=== PATIENT | female | born 1945 | race Caucasian/White ===

== ENCOUNTER → 2016-10-06 | Outpatient (REF) | payer OTHER ==
[2016-10-06 18:44] LABS: INR 1.06
== END ==
LOC: M LAB REF 16:49
PROVIDERS: ATTEND Internal Medicine Medical Oncology
DX: C34.12 Malignant neoplasm of upper lobe, left bronchus or lung (principal)

== ENCOUNTER → 2016-10-07 | Outpatient (REF) | payer OTHER | END | disposition home or self-care (01) | LOC: M LAB REF 08:12 | PROVIDERS: ATTEND Internal Medicine Medical Oncology | DX: C34.90 Malignant neoplasm of unspecified part of unspecified bronchus or lung (principal) ==

== ENCOUNTER → 2016-11-09 | Outpatient (REF) | payer OTHER ==
[~2016-11-09] MED LIST: NO HOME MEDICATIONS
== END ==
LOC: M LAB REF 16:45
PROVIDERS: ATTEND Internal Medicine Medical Oncology
DX: C34.90 Malignant neoplasm of unspecified part of unspecified bronchus or lung (principal); D64.81 Anemia due to antineoplastic chemotherapy

== ENCOUNTER 2016-11-10 08:41 | Outpatient (CLI) | payer OTHER ==
[~2016-11-10] VITALS: Ht 165.1 cm; Wt 72.2 kg
[2016-11-10] MEDS ORDERED: ACETAMINOPHEN TAB 650MG DOSE (2X325MG) PO ONE (09:00)
[2016-11-10] MEDS ORDERED: diphenhydrAMINE 50 MG CAP PO ONE (09:00)
[2016-11-10] MEDS ORDERED: FUROSEMIDE 20 MG/2 ML VIAL (J1940) IV ONE (12:00)
[2016-11-10] MEDS ORDERED: NO HOME MEDICATIONS (14:01)
== END 2016-11-10 14:00 | disposition home or self-care (01) ==
LOC: M INFU 08:41
PROVIDERS: ATTEND Internal Medicine Medical Oncology
DX: D64.81 Anemia due to antineoplastic chemotherapy (principal); C34.90 Malignant neoplasm of unspecified part of unspecified bronchus or lung
CPT/HCPCS: 36430; J1940; P9016

== ENCOUNTER → 2016-11-25 | Outpatient (CLI) | payer OTHER ==
--- NOTE | 2016-11-29 13:04 | RADONC ---
RADIATION ONCOLOGY NOTE DATE: 11/25/2016 CHART NUMBER: [id number]. 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 ECOG PERFORMANCE STATUS: 2. CONSULTATION NOTE: Ms. Capone is a very pleasant, 70-year-old white female with the diagnosis of what appears to be at least locally advanced, if not metastatic poorly differentiated squamous cell carcinoma of her left lung who is presently receiving systemic therapy and is presenting to us today for discussion of possible external beam radiation therapy as a therapeutic option. HISTORY OF PRESENT ILLNESS: The patient was in her usual state of health until approximately 6 months or so ago when she began developing increasing shortness of breath. By late August, she also developed a cough with thick sputum. She noted 6-month history of blood streaks in her sputum. In July 2016, she presented at [facility] with shortness of breath. A CT scan of the chest was done on 08/23/2016 and showed a large cavitary mass in the left upper lobe with air fluid level. The cavitary mass was 9.3 cm x 7.8 cm. There was a spiculated nodule measuring 1.8 cm x 1.6 cm within the medial aspect of the superior segment of the left upper lobe as well. There was another pleural based nodule present in the superior segment of the right lower lobe. On 09/09/2016, the patient underwent CT-guided biopsy of her left upper lobe mass. Pathology revealed a poorly differentiated squamous cell carcinoma. The patient was seen in medical oncology by Dr. Hay and has initiated systemic therapy in that office. She is being treated with carboplatin and gemcitabine. She has thus far had three cycles of chemotherapy. The patient had significant shortness of breath and has difficulty just walking a matter of a few dozen feet. She is not presently on nasal oxygen. The patient is now presenting to see if there is anything we could offer her. Again, in addition, a PET scan was done on 09/22/2016 and again confirmed hypermetabolic uptake in a huge both ears to left upper lobe lung mass as well as in the left hilar region. There was hypermetabolic uptake in the right hilar region as well as a separate right lung mass posterior to the right hilum. There was also increased uptake in the left lower lobe suggestive of lymphangitic malignancy. PAST MEDICAL HISTORY: The patient's past medical history is largely noncontributory. She has been in generally good health. She did have COPD. ALLERGIES: The patient has no known drug allergies. SOCIAL HISTORY: The patient had smoked one pack of cigarettes per day for 47 years. She quit tobacco in 2011 but smokes E-cigarettes now. She does not abuse alcohol. FAMILY HISTORY: The patient's family history is positive for a father with lung cancer. She had a sister with breast cancer. REVIEW OF SYSTEMS: The patient's review of systems is positive for shortness of breath. She has some anorexia and weight loss. She reports occasional dizziness. She also has occasional headaches. She reports chills since chemotherapy. She does complain of shortness of breath as well as weakness in her arms and legs and decreased energy. She denies nausea, vomiting, fevers, chest pain, urinary or bowel difficulties, bone pain or neurological problems. PHYSICAL EXAMINATION: The patient is a well-developed, well-nourished, 70-year-old female, in no acute distress. HEENT exam is normocephalic, atraumatic. Extraocular movements are intact. There is no palpable cervical, supraclavicular, infraclavicular, axillary, or inguinal lymphadenopathy present. Lungs reveal some bilateral rhonchi present. There appears to be decreased breath sounds on the left. Heart has a regular rate and rhythm. Abdomen is benign with no hepatosplenomegaly, masses, or tenderness. Skeletal examination reveals no tenderness to pressure or percussion of the bony skeleton. Extremities reveal no clubbing, cyanosis, or edema. Neurologic exam is grossly intact, as is the remainder of the physical examination. ASSESSMENT: Unfortunately at this time, the patient is quite short of breath walking just from our waiting room to the exam room, which is a few feet. I have personally reviewed the patient's PET scan with the family and the patient present. Although her pulmonary function show an FEV value of 1.35, the amount of lung in any irradiated field to this point would be quite prohibitive. Clearly the vast majority of the left lung would be destroyed but so would a significant portion of the right lung in order to include the hilar region and the separate nodule. The likelihood of cure of this patient is so small that such aggressive therapy does not appear to be warranted at this point. I have set up the patient to see me again in followup in six months' time and I have let her know that I am available to her at anytime should her condition change. I have also let her know we would be more than glad to see her if Dr. Hay thinks there is something we may be able to address. Once again, the role of radiation in this patient would be largely palliative. At this time, there is nothing significant to palliate. I explained to the patient that we might be quite beneficial to her should brain or bone metastasis develop in the future. We would also be willing to readdress lung radiation if the love could somehow be limited in order to avoid some future difficulty, which may develop. Once again, in summary, I have set her up for routine followup in our office so that she will remain in our patient system. She is continuing her close followup and management by her medical oncologist, Dr. Hay in whom I have great confidence. Thank you for allowing us to participate in the care of this very pleasant woman. Please feel free to contact me if I could be of any further assistance. cc: Vashti Hay MD
== END ==
LOC: M ONCR 13:11
PROVIDERS: ATTEND Radiology Radiation Oncology
DX: C34.92 Malignant neoplasm of unspecified part of left bronchus or lung (principal)

== ENCOUNTER → 2016-12-06 | Outpatient (CLI) | payer OTHER, SELFPAY ==
[~2016-12-06] MED LIST changes: +GASTROGRAFIN SOLUTION 30ML (Q9963) As Ordered ONE; +ISOVUE-370 76% 100ML VIAL (Q9967) As Ordered ONE
--- NOTE | 2016-12-07 09:59 | REP ---
Clinical: Primary lung cancer. Technique: Axial contrast enhanced images from the lung bases to the pubic symphysis using oral and 100 ml Isovue 370 intravenous contrast material with precontrast and delayed images of the abdomen as well as coronal and sagittal re-formations. Findings: Liver, spleen, pancreas, gallbladder, bilateral adrenal glands and kidneys are normal. The enteric system is without obstruction or acute inflammatory process. Small hiatal hernia identified at the gastroesophageal junction. Scattered sigmoid diverticula noted without acute diverticulitis. Normal terminal ileum and appendix identified in the right lower quadrant. Pelvis demonstrates normal bladder and age-appropriate uterus/adnexa. No pelvic fluid/ascites. No mass lesion identified. No retroperitoneal or intra-abdominal adenopathy. No free air. Atherosclerotic changes to the aorta and branch vessels noted without aneurysm or dissection. Musculoskeletal structures demonstrate degenerative change without focal osseous abnormality. Lung bases demonstrate chronic emphysematous changes. Impression: Small hiatal hernia. Sigmoid diverticula without acute diverticulitis. No further acute intra-abdominal or pelvic pathology appreciated. Signed by David Krishnamurthy MD 12/07/2016 09:08 A
--- NOTE | 2016-12-07 09:59 | REP ---
Clinical: Primary lung cancer for follow up. Comparison: 08/23/2016. Technique: Axial contrast enhanced images from the thoracic inlet to the upper abdomen using 100 ml Isovue 370 intravenous contrast material with coronal and sagittal re-formations. Findings: A largely complex cavitating lesion extending from the left hilum superiorly and peripherally into the left upper lobe is again identified and while it is difficult to quantify due to its irregular shape and multifaceted components, the lesion appears overall improved and decreased in volume when compared to prior examination. The largest predominantly soft tissue component which is inseparable from the left hilum measures roughly 6.7 cm maximal diameter with smaller intracavitary soft tissue components measuring up to roughly 4.5 cm maximal diameter. Few scattered bilateral soft tissue nodules are again identified and similar to prior examination. Specifically, within the periphery of the right lower lobe (image 47) is an 8.5 mm nodule which is unchanged and within the right perihilar region (image 44) measures roughly 1.7 cm maximal diameter and unchanged. Other smaller lesions and areas of peripheral subpleural soft tissue in the left upper lung zone are now identified and which may have been obscured by larger areas of consolidation and mass on the previous examination. No focal areas of hilar or mediastinal adenopathy are identified. Heart and pericardium appear relatively normal. The thoracic aorta demonstrates atherosclerotic changes without aneurysm or dissection. Lung love demonstrate underlying chronic COPD/emphysematous changes. Musculoskeletal structures demonstrate age-related changes without focal osseous abnormality. Impression: Largely complex cavitary mass involving the left hilum and extending into the left upper lobe appears to be relatively improved and less voluminous when compared to prior examination. Small scattered nodular lesions and soft tissue appears similar to prior examination. Signed by David Krishnamurthy MD 12/07/2016 09:03 A
== END ==
LOC: M RAD 11:41
PROVIDERS: ATTEND Internal Medicine Medical Oncology
DX: C34.90 Malignant neoplasm of unspecified part of unspecified bronchus or lung (principal)
CPT/HCPCS: 71260; 74178; Q9963; Q9967

== ENCOUNTER 2017-01-05 10:02 | Outpatient (CLI) | payer OTHER ==
[~2017-01-05 10:02] MED LIST changes: +ACETAMINOPHEN TAB 650MG DOSE (2X325MG) PO SCH; -GASTROGRAFIN SOLUTION 30ML (Q9963) As Ordered ONE; -ISOVUE-370 76% 100ML VIAL (Q9967) As Ordered ONE; +diphenhydrAMINE 25 MG CAP PO SCH
[2017-01-05] MEDS ORDERED: FUROSEMIDE 20 MG/2 ML VIAL (J1940) IV ONE ×2 (11:00→12:00)
== END 2017-01-05 16:40 | disposition home or self-care (01) ==
LOC: M INFU 10:02
PROVIDERS: ATTEND Internal Medicine Medical Oncology
DX: C34.90 Malignant neoplasm of unspecified part of unspecified bronchus or lung (principal); D64.9 Anemia, unspecified
CPT/HCPCS: 36430; 86850; 86870; 86900; 86901; 86920; J1940; P9016

== ENCOUNTER → 2017-02-23 | Outpatient (REF) | payer OTHER ==
[~2017-02-23] MED LIST changes: -ACETAMINOPHEN TAB 650MG DOSE (2X325MG) PO SCH; -diphenhydrAMINE 25 MG CAP PO SCH
== END ==
LOC: M LAB REF 12:41
PROVIDERS: ATTEND Internal Medicine Medical Oncology
DX: D64.9 Anemia, unspecified (principal)

== ENCOUNTER 2017-02-24 09:31 | Outpatient (CLI) | payer OTHER ==
[2017-02-24 10:00] VITALS: BP 106/55
[2017-02-24] MEDS ORDERED: diphenhydrAMINE 50 MG CAP PO ONE (10:15)
[2017-02-24] MEDS ORDERED: diphenhydrAMINE 25 MG CAP PO ONE (10:15)
[2017-02-24] MEDS ORDERED: ACETAMINOPHEN TAB 650MG DOSE (2X325MG) PO ONE (10:15)
[2017-02-24] MEDS: FUROSEMIDE 20 MG/2 ML VIAL (J1940) IV SCH ×2 (12:26→14:09)
== END 2017-02-24 14:47 | disposition home or self-care (01) ==
LOC: M OPCLI4PR 09:31 → M OPCLI4PV 09:31 → M MSPAV 09:43 → M OPCLI4PV 14:47
PROVIDERS: ATTEND Internal Medicine Medical Oncology
DX: D64.9 Anemia, unspecified (principal); C34.90 Malignant neoplasm of unspecified part of unspecified bronchus or lung
CPT/HCPCS: 36430; J1940; P9016

== ENCOUNTER → 2017-03-23 | Outpatient (CLI) | payer OTHER ==
[~2017-03-23] MED LIST changes: +GASTROGRAFIN SOLUTION 30ML (Q9963) As Ordered ONE; +ISOVUE-370 76% 100ML VIAL (Q9967) As Ordered ONE
--- NOTE | 2017-03-23 19:35 | REP ---
CT abdomen and pelvis without and with IV contrast: With oral contrast: History: Metastatic lung carcinoma. Comparison CT abdomen and pelvis is from 12/06/2016. CT contrast dose: 100 mL of intravenous Isovue [address] abdomen pelvis findings: Digital conservation educator radiograph is unremarkable. The lung bases are essentially clear. The liver and spleen are normal in size and homogeneous in texture. No abnormality is noted in the gallbladder. Pancreas is unremarkable. Kidneys enhance symmetrically and show no significant lesion. No retroperitoneal mass or adenopathy is seen. There is a retroaortic left renal vein noted incidentally. Normal caliber calcified aorta. No bony destructive lesion is seen. No uterine or ovarian abnormality is appreciated. Urinary bladder is unremarkable. Impression: No acute intra-abdominal abnormality. Signed by Carlos Smith MD 03/23/2017 08:29 P
--- NOTE | 2017-03-24 06:44 | REP ---
CT study of the chest with IV contrast: History: Metastatic carcinoma of the lung. Comparison chest CT study December 06, 2016. CT contrast dose: 100 ml of Isovue [address] findings: The previously noted complex cavitary lesion in the distribution of the left upper lobe is again seen. This shows interval improvement in the size of the overall cavity from an AP dimension of 9.1 cm in November 2016 to 6.9 cm today. The overall cavity has improved. The intracavitary nodularity has improved as well. In November, there was a 4.6 cm intracavitary nodular component. On today's study, this component is smaller as well measuring 7 cm in greatest dimension. The cavity does have a thick somewhat nodular wall as before. There is a left hilar cavitary component as well which shows improvement in overall size. This appears to directly communicate with the left mainstem bronchus. There is some left lower lobe and left upper lobe bronchial narrowing associated with this lesion. There is a small peripheral left upper lobe nodule which is also decreased slightly in size measuring 7 mm today. The 1.7 cm right lower lobe infrahilar nodule has improved to a diameter of 0.8 cm. There is a peripheral 6 mm right lower lobe nodule which previously measured 9 mm. No new lesion. Impression: Continued improvement. Signed by Carlos Smith MD 03/24/2017 07:58 A
[2017-04-06 16:20] VITALS: BP 112/55
== END ==
LOC: M RAD 15:17
PROVIDERS: ATTEND Internal Medicine Medical Oncology
DX: C34.90 Malignant neoplasm of unspecified part of unspecified bronchus or lung (principal)
CPT/HCPCS: 71260; 74178; Q9963; Q9967

== ENCOUNTER 2017-04-06 16:05 | Outpatient (CLI) | payer OTHER ==
[2017-04-06] VITALS (8 sets, daily range): BP systolic 97–114; BP diastolic 52–66
[2017-04-06] MEDS ORDERED: ACETAMINOPHEN TAB 650MG DOSE (2X325MG) PO SCH (16:30)
[2017-04-06] MEDS ORDERED: diphenhydrAMINE 25 MG CAP PO SCH (16:30)
[2017-04-07 00:11] VITALS: BP 106/62
[2017-04-07 01:11] VITALS: BP 115/62
== END 2017-04-07 01:20 | disposition home or self-care (01) ==
LOC: M OPCLI4PV 16:05 → M MSPAV 16:08 → M OPCLI4PV 04-07 01:20
PROVIDERS: ATTEND Internal Medicine Medical Oncology
DX: C34.90 Malignant neoplasm of unspecified part of unspecified bronchus or lung (principal)
CPT/HCPCS: 36430; 86850; 86900; 86901; 86920; P9016

== ENCOUNTER → 2017-04-06 | Outpatient (REF) | payer OTHER ==
[~2017-04-06] MED LIST changes: -GASTROGRAFIN SOLUTION 30ML (Q9963) As Ordered ONE; -ISOVUE-370 76% 100ML VIAL (Q9967) As Ordered ONE
== END ==
LOC: M LAB REF 14:53
PROVIDERS: ATTEND Internal Medicine Medical Oncology
DX: C34.90 Malignant neoplasm of unspecified part of unspecified bronchus or lung (principal)

== ENCOUNTER → 2017-11-04 | Outpatient (REF) | payer OTHER | LOC: M LAB REF 10:26 | DX: C34.92 Malignant neoplasm of unspecified part of left bronchus or lung (principal) | CPT/HCPCS: 88300 ==